=== PATIENT | male | born 1950 | race Caucasian/White ===

== ENCOUNTER 2017-12-11 19:44 | Emergency (ER) | payer OTHER, SELFPAY ==
[2017-12-11 20:18] LABS: Absolute Lymphocytes (CBC) 1.1 K/uL (0.7-4.9); Absolute Monocytes 0.5 K/uL (0.1-1.3); Absolute Neutrophil 5.5 K/uL (1.8-8.0); Basophils % 0.7 % (0-1.3); Hematocrit 41.1 % (39.6-49.0); Lymphocytes % 14.8 % (15.3-44.8); MCH 31.6 pg (27.0-35.0); MCV 92.2 fL (80-100); MPV 9.7 fL (7.6-11.3); Monocytes % 7.1 % (3.3-12.3); RBC Red Blood Cell Count 4.46 M/uL (4.33-5.43)
[2017-12-11] MEDS ORDERED: MORPHINE 4 MG/ML SYR ONE (20:24)
[2017-12-11] MEDS ORDERED: ONDANSETRON 4 MG/2 ML VIAL ONE ×2 (20:24→22:37)
[2017-12-11 20:31] LABS: Potassium 3.8 mmol/L (3.5-5.1)
[2017-12-11] MEDS ORDERED: NA CHLORIDE 0.9% 500 ML ONE (21:03)
[2017-12-11] MEDS ORDERED: MEPERIDINE HCL 50 MG/ML AMP ONE ×2 (21:21→22:08)
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
--- NOTE | 2017-12-11 21:37 | RAD REPORT ---
EXAM DESCRIPTION: RAD - Abdomen Single View - 12/11/2017 8:09 pm CLINICAL HISTORY: Abdominal pain FINDINGS: Free air is not seen beneath the diaphragm. The bowel gas pattern is unremarkable
== END 2017-12-11 22:43 | disposition short-term general hospital (02) ==
LOC: ER 19:44
DX: S31.30XA Unspecified open wound of scrotum and testes, initial encounter (principal); S39.91XA Unspecified injury of abdomen, initial encounter; W22.8XXA Striking against or struck by other objects, initial encounter; Y93.89 Activity, other specified; Y92.89 Other specified places as the place of occurrence of the external cause; Z79.82 Long term (current) use of aspirin; E78.5 Hyperlipidemia, unspecified; I25.2 Old myocardial infarction; F41.9 Anxiety disorder, unspecified
CPT/HCPCS: 36415; 71260; 72170; 74018; 74177; 80048; 85025; 86850; 86900; 86901; 99285; J2175; J2405; Q9967